=== PATIENT | female | born 1970 | race Caucasian/White ===

== ENCOUNTER 2023-08-02 18:21 | Emergency (ER) | payer OTHER, MEDICAID ==
[2023-08-02 19:37] VITALS: PULSE 80
[2023-08-02] MEDS ORDERED: Ketorolac 30 MG/ML SDV IM ONE (20:08)
[2023-08-02] MEDS ORDERED: Orphenadrine 60 MG/2 ML Inj IM ONE (20:08)
[2023-08-02] MEDS ORDERED: Take Home: traMADol 50 MG, 4 Tab Pack PO ONE (20:14)
[2023-08-02] MEDS ORDERED: Take Home: Cyclobenzaprine 10 MG Tab, 4 Tab Pack PO ONE (20:14)
[2023-08-02 21:30] VITALS: BP 133/90
== END 2023-08-02 20:34 | disposition home or self-care (01) ==
LOC: VM.ED 18:21
DX: S16.1XXA Strain of muscle, fascia and tendon at neck level, initial encounter (principal); M25.511 Pain in right shoulder; I10 Essential (primary) hypertension; J44.9 Chronic obstructive pulmonary disease, unspecified; Z72.0 Tobacco use; Z88.1 Allergy status to other antibiotic agents; Z79.899 Other long term (current) drug therapy; V49.59XA Passenger injured in collision with other motor vehicles in traffic accident, initial encounter; Y92.410 Unspecified street and highway as the place of occurrence of the external cause
CPT/HCPCS: 70450; 71045; 72125; 73030-RT; 96372; 99284; A9270-GY; J1885; J2360